=== PATIENT | female | born 1990 | race Caucasian/White ===

== ENCOUNTER 2016-09-25 15:51 | Emergency (ER) | payer BC ==
[2016-09-25] MEDS ORDERED: Ketorolac 30 MG/ML SDV IVPUSH ONE (16:09)
[2016-09-25] MEDS ORDERED: Ondansetron 4 MG/2 ML SDV IVPUSH ONE (16:09)
[2016-09-25] MEDS ORDERED: Sodium Chloride 0.9% 1,000 ML IV ONE (16:09)
[2016-09-25] MEDS ORDERED: LORazepam 2 MG/ML MDV IVPUSH ONE (16:09)
--- NOTE | 2016-09-25 16:54 | EDM.PDOC ---
[id number] 4d C/O MIGRAINES OVER 24 HRS Time Seen by Provider: 09/25/16 16:10 Source of Information: Reports: Patient History Limitations: Reports: No Limitations - History of Present Illness INITIAL COMMENTS - FREE TEXT/NARRATIVE: History of present illness: [25-year-old female with chronic migraine headaches comes in complaining of the migraines worse than when she has ever had before her and her life. Patient does indicate that her migraines are consistent with hormonal changes and that she suffers from PCOS. and been diagnosed as and first.] Review of systems: As per history of present illness and below otherwise all systems reviewed and negative. Past medical history: As per history of present illness and as reviewed below otherwise noncontributory. Surgical history: As per history of present illness and as reviewed below otherwise noncontributory. Social history: No reported history of drug or alcohol abuse. Family history: As per history of present illness and as reviewed below otherwise noncontributory. Physical exam: HEENT: Atraumatic, normocephalic, pupils reactive, negative for conjunctival pallor or scleral icterus, mucous membranes moist, throat clear, neck supple, nontender, trachea midline. Lungs: Clear to auscultation, breath sounds equal bilaterally, chest nontender. Heart: S1S2, regular, negative for clicks, rubs, or JVD. Abdomen: Soft, nondistended, nontender. Negative for masses or hepatosplenomegaly. Negative for costovertebral tenderness. Pelvis: Stable nontender. Genitourinary: Deferred. Rectal: Deferred. Extremities: Atraumatic, negative for cords or calf pain. Neurovascular unremarkable. Neuro: Awake, alert, oriented. Cranial nerves II through XII unremarkable. Cerebellum unremarkable. Motor and sensory unremarkable throughout. Exam nonfocal. Diagnostics: [CT of head] Therapeutics: [Toradol, Ativan, IV fluid, dark, oxygen, and] Impression: [X-ray and headache] Plan: [Followup with PCP/neurology] Definitive disposition and diagnosis as appropriate pending reevaluation and review of above. 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: Polycystic Ovaries Endocrine/Metabolic History: Reports: Hypothyroidism - Infectious Disease History Infectious Disease History: Reports: Chicken Pox - Past Surgical History Endocrine Surgical History: Reports: None Social & Family History - Family History Family Medical History: Noncontributory - Tobacco Use Smoking Status *Q: Never Smoker Second Hand Smoke Exposure: No - Caffeine Use Caffeine Use: Reports: Coffee Caffeine Use Comment: 3 cups/day 1 tea - Recreational Drug Use Recreational Drug Use: No ED ROS GENERAL - Review of Systems Review Of Systems: See Below (History of present illness) - Physical Exam Exam: See Below (See history of present illness) Course - Vital Signs Last Recorded V/S: Last Vital Signs Temp 36.7 C 09/25/16 17:47 Pulse 78 09/25/16 17:47 Resp 16 09/25/16 17:47 BP 111/61 09/25/16 17:47 Pulse Ox 98 09/25/16 17:47 - Orders/Labs/Meds Labs: Laboratory Tests 09/25/16 Range/Units 16:20 Urine HCG, Qual NEGATIVE (NEGATIVE) Meds: Medications Discontinued Medications Generic Name Dose Route Start Last Admin Trade Name Freq PRN Reason Stop Dose Admin Sodium Chloride 1,000 mls @ 999 mls/hr 09/25/16 16:09 09/25/16 16:33 Normal Saline IV 09/25/16 17:09 999 mls/hr STAT ONE Administration Ketorolac Tromethamine 30 mg 09/25/16 16:09 09/25/16 16:51 Toradol IVPUSH 09/25/16 16:10 30 mg ONETIME ONE Administration Lorazepam 1 mg 09/25/16 16:09 09/25/16 16:51 Ativan IVPUSH 09/25/16 16:10 1 mg ONETIME ONE Administration Ondansetron HCl 8 mg 09/25/16 16:09 09/25/16 16:51 Zofran IVPUSH 09/25/16 16:10 8 mg ONETIME ONE Administration Sumatriptan Succinate 6 mg 09/25/16 16:55 09/25/16 17:45 Imitrex SUBCUT 09/25/16 16:56 Not Given ONETIME ONE Departure - Departure Time of Disposition: 17:28 Disposition: Home, Self-Care 01 Condition: good Clinical Impression: Migraine - Discharge Information Prescriptions: SUMAtriptan Succinate [Imitrex] 100 mg PO ASDIRECTED PRN #12 tablet PRN Reason: Headache Instructions: Migraine Headache, [id number] Referrals: Mikaela Perez MD [Primary Care Provider] - Forms: ED Department Discharge Additional Instructions: The following information is given to patients seen in the emergency department who are being discharged to home. This information is to outline your options for follow-up care. We provide all patients seen in our emergency department with a follow-up referral. The need for follow-up, as well as the timing and circumstances, are variable depending upon the specifics of your emergency department visit. If you don't have a primary care physician on staff, we will provide you with a referral. We always advise you to contact your personal physician following an emergency department visit to inform them of the circumstance of the visit and for follow-up with them and/or the need for any referrals to a consulting specialist. The emergency department will also refer you to a specialist when appropriate. This referral assures that you have the opportunity for follow-up care with a specialist. All of these measure are taken in an effort to provide you with optimal care, which includes your follow-up. Under all circumstances we always encourage you to contact your private physician who remains a resource for coordinating your care. When calling for follow-up care, please make the office aware that this follow-up is from your recent emergency room visit. If for any reason you are refused follow-up, please contact the [facility] Emergency Department at and asked to speak to the emergency department charge nurse. Take medication as directed followe Up to PCP 1-2 days and/or neurology Return to ED as needed as discussed
[2016-09-25] MEDS ORDERED: SUMAtriptan 6 MG/0.5 ML SDV SUBCUT ONE (16:55)
[2016-09-25 17:48] VITALS: BP 111/61
--- NOTE | 2016-09-28 13:45 | CT ---
EXAM DATE: 09/25/16 PATIENT'S AGE: 25 Patient: JJ MOLINA Facility: [place], [place] Site . Site : 1990 Study: CT Head wo cont [id number] 4:26:48 PM Ordering Physician: Doctor Barksdale Final Report: INDICATION: headache, pt states migraine starting yesterday at 1330hrs CT HEAD WITHOUT CONTRAST TECHNIQUE: Multiple axial CT images were performed through the head without intravenous contrast administration. COMPARISON: No previous studies are currently available for comparison. FINDINGS: No acute intracranial hemorrhage is identified. No extra-axial collections are evident and there is no mass effect or midline shift. Ventricles are normal in size and configuration. Brain parenchyma appears normal with unremarkable menezes-white differentiation. Osseous structures are within normal limits and no fractures are seen. Included portions of the paranasal sinuses and mastoid air cells are normally aerated. IMPRESSION: Normal non-contrast head CT. LAILA LEONG MD [employer] Dictated by: Tung Leong MD @ 09/25/2016 16:55:32 (Electronic Signature) Report Signed by Proxy. [facility]
== END 2016-09-25 17:53 | disposition home or self-care (01) ==
LOC: MW.ED 15:51
DX: R51 Headache (principal); E03.9 Hypothyroidism, unspecified
CPT/HCPCS: 70450; 81025; 96361; 96374; 96375; 99284; J1885; J2060; J2405; J7040